=== PATIENT | male | born 1955 | race Caucasian/White ===

== ENCOUNTER 2017-08-25 09:41 | Day surgery (SDC) | payer OTHER ==
[2017-08-22 19:02] VITALS: BMI 31.2
[2017-08-25] MEDS ORDERED: MIDAZOLAM HCL 2 MG/2 ML SINGLE DOSE VIAL ONE ×2 (12:00→12:26)
[2017-08-25] MEDS ORDERED: DEXAMETHASONE SOD PHOSPHATE 4 MG/1 ML VIAL ONE (12:32)
[2017-08-25] MEDS ORDERED: KETOROLAC TROMETHAMINE 30 MG/1 ML VIAL ONE (12:32)
[2017-08-25] MEDS ORDERED: PROPOFOL 20 ML ONE (12:39)
--- NOTE | 2017-08-25 12:58 | OP ---
Operative Note - Note: Operative Date: 08/25/17 Pre-Operative Diagnosis: Right kidney stone Operation: Right ESWL Findings: 5 mm mid pole Right kidney stone Post-Operative Diagnosis: Same as Pre-op Surgeon: Matteo Griffith (not complicated) Anesthesia: Fractional
[2017-08-25] MEDS ORDERED: ONDANSETRON 4 MG/2 ML VIAL IVPUSH PRN (13:13)
[2017-08-25] MEDS ORDERED: oxyCODONE HCL 5 MG TABLET PO PRN (13:13)
[2017-08-25] MEDS ORDERED: ACETAMINOPHEN 325 MG TABLET (FP) PO PRN (13:13)
[2017-08-25] MEDS ORDERED: LACTATED RINGERS SOLUTION 1,000 ML IV SCH (13:15)
[2017-08-25 13:25] VITALS: TEMP 97.8
[2017-08-25 13:50] VITALS: BP 135/85; PULSE 70
--- NOTE | 2017-08-25 22:44 | OP ---
DATE OF OPERATION: 08/25/2017 PREOPERATIVE DIAGNOSIS: Right renal stone. POSTOPERATIVE DIAGNOSIS: Right renal stone. PROCEDURE: Right extracorporeal shock wave lithotripsy. ATTENDING: Kimberly Smith MD ANESTHESIA: Fractional. DESCRIPTION OF OPERATION: The patient was brought in the operating room, placed in supine position on the operating room table. Ultrasonography and fluoroscopy were performed. A 5-mm right mid-pole stone was identified. At this point, anesthesia and preoperative antibiotics were administered. Shock wave lithotripsy was then performed; 2500 impulses at 17 joules of power were administered to the stone with excellent fragmentation of the stone noted. There were no complications noted. The disposition of the patient was to the recovery room. KIMBERLY SMITH M.D. [id number]
== END 2017-08-25 14:20 | disposition home or self-care (01) ==
LOC: JASU-SURG 09:41
PROVIDERS: ATTEND Urology
PROC: 0TF3XZZ Fragmentation in Right Kidney Pelvis, External Approach (ICD-10-PCS; principal; 2017-08-25 11:45)
DX: N20.0 Calculus of kidney (principal)
CPT/HCPCS: 94760

== ENCOUNTER 2024-08-30 06:30 | Day surgery (SDC) | payer OTHER ==
[2024-08-24 11:47] VITALS: BMI 30.7
[2024-08-30 08:49] VITALS: RESP 18
[2024-08-30] MEDS ORDERED: MIDAZOLAM HCL 2 MG/2 ML SINGLE DOSE VIAL ONE (10:22)
[2024-08-30] MEDS ORDERED: ONDANSETRON 4 MG/2 ML VIAL ONE (10:27)
[2024-08-30 11:01] VITALS: BP 141/72; PULSE 68; TEMP 97.6
== END 2024-08-30 11:45 | disposition home or self-care (01) ==
LOC: JASU-SURG 06:30
PROVIDERS: ATTEND Urology
PROC: 0TF4XZZ Fragmentation in Left Kidney Pelvis, External Approach (ICD-10-PCS; principal; 2024-08-30 10:27)
DX: N20.0 Calculus of kidney (principal)